=== PATIENT | female | born 1965 | race Caucasian/White ===

== ENCOUNTER 2018-04-11 10:09 | Emergency (ER) | payer SELFPAY ==
[~2018-04-11] VITALS: Ht 157.5 cm; Wt 77.1 kg
[2018-04-11 10:13] VITALS: Ht 157.5 cm; Wt 77.1 kg
[2018-04-11 11:20] VITALS: BP 158/95
== END 2018-04-11 11:25 | disposition short-term general hospital (02) ==
LOC: ED 10:09
DX: R53.1 Weakness (principal); R51 Headache; R07.89 Other chest pain; G47.00 Insomnia, unspecified; Z86.73 Personal history of transient ischemic attack (TIA), and cerebral infarction without residual deficits; F41.9 Anxiety disorder, unspecified; Z88.2 Allergy status to sulfonamides; Z88.1 Allergy status to other antibiotic agents
CPT/HCPCS: 82962

== ENCOUNTER 2018-11-11 00:19 | Emergency (ER) | payer OTHER ==
[~2018-11-11] VITALS: Ht 157.5 cm; Wt 84.8 kg
[2018-11-11 00:25] VITALS: Ht 157.5 cm; Wt 84.8 kg
[2018-11-11 01:26] VITALS: BP 155/89
== END 2018-11-11 01:26 | disposition home or self-care (01) ==
LOC: ED 00:19
DX: F41.9 Anxiety disorder, unspecified (principal); G47.00 Insomnia, unspecified; Z88.2 Allergy status to sulfonamides; Z88.1 Allergy status to other antibiotic agents; Z98.890 Other specified postprocedural states; Z86.73 Personal history of transient ischemic attack (TIA), and cerebral infarction without residual deficits